=== PATIENT | female | born 1970 | race Caucasian/White ===

== ENCOUNTER 2018-04-02 07:11 | Emergency (ER) | payer OTHER, SELFPAY ==
[2018-04-02 07:13] VITALS: BP 155/80; PULSE 74; RESP 15; TEMP 36.9; O2SAT 98; BMI 32.8
--- NOTE | 2018-04-02 07:14 | EKG12_ITS ---
Test Reason : CP Blood Pressure : / mmHG Vent. Rate : 068 BPM Atrial Rate : 068 BPM P-R Int : 196 ms QRS Dur : 092 ms QT Int : 396 ms P-R-T Axes : 029 027 045 degrees QTc Int : 421 ms Normal sinus rhythm Normal ECG Confirmed by JAIR BRENNAN MD ([id number]), video news editor TOREY PERES ([id number]) on 04/03/2018 2:05:43 PM Referred By: FLAKITA Confirmed By:JAIR BRENNAN MD
--- NOTE | 2018-04-02 07:14 | CT_ITS ---
STUDY: CT BRAIN WITHOUT CONTRAST REASON FOR EXAM: Female, 47 years old. Right-sided facial tingling. Numbness. RADIATION DOSAGE (If Supplied By Facility): CTDIvol = ( 44.99 ) mGy, DLP = ( 745.49 ) mGycm TECHNIQUE: Transaxial CT imaging of the brain was performed without administration of intravenous contrast material. Individualized dose optimization techniques were used for this CT. COMPARISON: None. FINDINGS: Normal soft tissue structures. Normal calvarium. Normal size ventricles and extra-axial spaces for the patient's age. Normal white matter tracts of the cerebral hemispheres. Normal basal ganglia and thalami. Normal brainstem. Normal cerebellum. There is no intracranial hemorrhage. There are no findings of an acute ischemic infarction. Normal visualized paranasal sinuses. CT/Brain/Head without Contrast IMPRESSION: Normal unenhanced CT scan of the brain. If there is high clinical suspicion of an acute infarction and further imaging is warranted recommend MRI using diffusion weighted images. Electronically Signed: Juan Reddy MD at 7:53 EST , Service support ,
--- NOTE | 2018-04-02 07:14 | ED.RN ---
respiratory called on 2 different numbers x 5 no answer. overhead page placed by shrinking machine operator
[2018-04-02 07:18] VITALS: BP 97/83; PULSE 76; RESP 14; O2SAT 99
--- NOTE | 2018-04-02 07:19 | ED.DCSUM_ITS ---
- ER Visit Summary Date of Service: 04/02/18 Chief Complaint: Heart racing, face tingling History of Present Illness: The patient is a 47 F presents to the emergency department with palpitations and face tingling. Patient states over the past 3 days, she is had intermittent sensation that her heart was racing. She is also had some mild chest pain. It is nonradiating. She states today, she was driving to work. She had a sensation that her heart was racing. She then began to have some tingling in her right cheek. She states by the time she got to work, and had improved but she was just feeling lightheaded. She denies any fevers or chills. She denies any headaches or visual change. She has no history of coronary vascular disease. She has no history of prior stroke or TIA. She has no known history of hypercoagulability. She denies neck pain. She does not smoke. Physical Examination: Vital signs reviewed General: Well-nourished, well-developed Head: Normocephalic, atraumatic Eyes: Pupils equal and reactive, extraocular muscles intact Neck, supple, no lymphadenopathy Heart: Regular rate and rhythm Respiratory: No distress, clear bilaterally Abdomen: Soft, nontender, nondistended, no peritoneal signs Back: Nontender Extremities: Nontender, no edema, no cords Skin: Normal color no rash Neuro: Alert and oriented, no focal or lateralizing deficits Test Results: [] Emergency Department Course and Treatment: The patient presents with tingling of her right cheek that has since resolved. Her NIH is 0. IV was established. EKG shows sinus rhythm without evidence of acute ischemic change. There is normal axis normal intervals. Patient was given IV fluids. On reevaluation, she states that she has had no further symptoms. Metabolic workup was pursued. Troponin, TSH, magnesium, and other laboratory markers are unremarkable. Head CT is also unremarkable. The patient has an ABCD 2 score of only 1 for her blood pressure. She has no risk for TIA or stroke. My suspicion is that this is not a dangerous process. The patient is well-appearing. She had resolution of her symptoms. She is back to baseline. I do feel that she is safe for discharge with outpatient follow-up. I did travel counselor automobile club her on concerning symptoms and reasons to return to the emergency department. The patient will be discharged home. Treatment Plan: [] Disposition: Discharge Impression: 1. Facial paresthesias-resolved 2. Palpitations This note was generated with [employer] dictation software. It may contain incorrect words, spelling, and punctuation that were not noted in review of the chart prior to signing ED Disposition - Plan for ED Patient: Instructions: ED Paraesthesias Referrals: Robin Kingston MD [Primary Care Provider] -
--- NOTE | 2018-04-02 07:25 | NURSING ---
NO OLD EKGS
[2018-04-02 07:26] LABS: Absolute Lymphocyte Count 1.57 X10^3/ul (0.83-4.51); Absolute Neutrophil Count 6.7 X10^3/uL (2.0-7.7); Basophil# 0.05 X10^3/uL; Basophil% 0.6 % (0-1); Eosinophil# 0.16 X10^3/uL; Eosinophils% 1.8 % (0-5); Hematocrit 43.1 % (37-47); Hemoglobin 14.4 g/dl (12.0-15.0); Lymphocyte # 1.57 X10^3/ul (4.0); Lymphocyte % 17.3 % (19-41); Mean Corp Hgb Conc 33.4 g/gl (32-36); Mean Corpuscular Hgb 28.7 pg (27.0-32.0); Mean Platelet Vol. 9.8 fl (6.2-12.0); Monocyte# 0.52 X10^3/uL; Monocyte% 5.7 % (0-10); Neutrophil # 6.73 X10^3/uL (2.7-7.7); Neutrophil % 74.3 % (47-70); Platelet Count 253 K/mm3 (150-450); RBC Distribution Width CV 13.1 % (11.6-14.6); RBC Distribution Width SD 40.1 fl (35.1-43.9); Red Blood Count 5.01 M/mm3 (4.2-5.4); White Blood Count 9.1 K/mm3 (4.4-11.0)
[2018-04-02 07:30] LABS: POSITIVE COUNT NO; POSITIVE DIFFERENTIAL NO; POSITIVE MORPHOLOGY NO
[2018-04-02 07:35] VITALS: BP 155/80; PULSE 74; RESP 15; O2SAT 98
[2018-04-02] MEDS: 0.9% Normal Saline 1,000 ML 1000 ML IV (07:39)
[2018-04-02 07:47] LABS: ALB/GLOB Ratio 1.2 RATIO (0.9-2.4); AST(SGOT) 19 U/L (15-37); Alanine Aminotransfer ALT/SGPT 32 U/L (13-56); Albumin, Serum 4.4 g/dL (3.2-5.0); Alkaline Phosphatase 102 U/L (45-117); Anion Gap 9 (5-15); BUN 8 mg/dL (7-18); BUN/Creat Ratio 8.1 RATIO (10-20); Calcium,Total 8.9 mg/dL (8.5-10.1); Chloride 104 mmol/L (98-107); Creatinine, Serum 0.99 mg/dL (0.55-1.02); EST Glomerular Filtration Rate 64 mL/min (>60); Est Glom Filt Rate - Afr Amer 77 mL/min (>60); Estimated Creatinine Clearance 65.76 ml/min; Globulin 3.7 g/dL (2.2-4.2); Glucose 117 mg/dL (74-106); Potassium 3.7 mmol/L (3.5-5.1); Protein, Total 8.1 g/dL (6.4-8.2); Sodium Level 138 mmol/L (136-145); Thyroid Stim Hormone (TSH) 0.82 uIU/mL (0.358-3.74)
[2018-04-02 08:45] VITALS: BP 142/93; PULSE 87; RESP 18; O2SAT 97
== END 2018-04-02 08:46 | disposition home or self-care (01) ==
LOC: ED 07:35
PROVIDERS: Emergency Provider Emergency Medicine; Family Provider Family Medicine; PCP Family Medicine
DX: R00.2 Palpitations (principal); R20.2 Paresthesia of skin; Z87.891 Personal history of nicotine dependence
CPT/HCPCS: 70450; 80053; 83735; 84443; 84484; 85025; 93005; 96360; 99285; J7030; A4216

== ENCOUNTER → 2019-09-02 | Outpatient (CLI) | payer BC, SELFPAY | END | disposition home or self-care (01) | LOC: LABSPEC 09-03 07:33 | PROVIDERS: PCP Family Medicine; Visit Provider Family Medicine Hospice and Palliative Medicine | DX: Z11.59 Encounter for screening for other viral diseases (principal) | CPT/HCPCS: 87635; G2023; U0003 ==